=== PATIENT | female | born 1930 | race Caucasian/White ===

== ENCOUNTER 2018-03-15 13:45 | Observation (INO) | payer OTHER, BC ==
[~2018-03-15] VITALS: Ht 162.6 cm; Wt 72.1 kg
[~2018-03-15 13:45] MED LIST: AMLODIPINE BES2.5 MG PO; APRESOLINE25 MG PO; ASPIRIN81 M2 PO; Aspirin E.C. PO; BENADRYL25 MG PO; BISAC-EVAC10 MG PR; CARBIDOPA-LEVO1 EAC7 PO; CARBIDOPA/LEVO1 EACH PO; CHILDREN'S ASPI81 M1 PO; CLONIDINE HCL0.1 MG PO; COLACE100 MG PO; COMPAZINE25 M1 PR; CORTIZONE-1028 GM TP; DAILY VALUE1 EACH PO; DIAZEPAM5 MG PO; DRISDOL50000 UNIT PO; ERGOCALCIF50000 UNIT PO; EXELON PATCH4.6 MG TD; INDERIDE 40/1 TABLET PO; LEVODOPA PO; LIDOCAINE700 MG TD; LOPRESSOR100 M1 PO; LORAZEPAM0.5 MG PO; LOVENOX40 MG/0.4 SC; METOPROLOL SUCC25 MG PO; METOPROLOL TAR100 MG PO; MICROZIDE12.5 M1 NG; MILK OF MAGN PO; MILK OF MAGNESI10 ML PO; NORVASC2.5 MG PO; ONDANSETRON ODT4 MG PO; ONE DAILY ESS400 MCG PO; QUETIAPINE FUMA25 MG PO; RIVASTIGMINE1.5 MG PO; SENNA-TIME S T1 EACH PO; SEROQUEL12.5 MG PO; SINEMET 25-1001 EACH PO; TOPROL XL25 MG PO; TOPROL XL6.25 MG PO; TYLENOL EXTRA500 MG PO; TYLENOL REGULA325 MG PO; Toprol XL PO; Tums,OsCal PO; Tylenol PR; VALIUM5 MG PO; Valium PO
[2018-03-15 14:09] LABS: CHLORIDE 104 mEq/L (99-109); POTASSIUM 3.6 mEq/L (3.7-5.4); SODIUM 142 mEq/L (136-147)
[2018-03-15 14:10] LABS: GLUCOSE 75 mg/dL (70-99)
[2018-03-15 14:14] LABS: CREATININE 0.8 mg/dL (0.6-1.3); GFR ESTIMATE (CALCULATED) > 59 mL/min/
[2018-03-15 14:15] LABS: UREA NITROGEN (BUN) 29 mg/dL (9-23)
[2018-03-15 14:21] LABS: TROP-I INTERPRETATION NEGATIVE; TROPONIN-I 0.04 ng/mL (0.0-0.30)
[2018-03-15] MEDS ORDERED: K-DUR10 MEQ PO (16:30)
[2018-03-15] MEDS ORDERED: HYDROCHLOROTHIA25 MG PO (16:31)
[2018-03-15] MEDS ORDERED: MEMANTINE HCL5 MG PO (16:32)
[2018-03-15] MEDS ORDERED: SINEMET 25-1001 EACH PO (16:33)
[2018-03-15] MEDS ORDERED: APRESOLINE50 MG PO (16:35)
[2018-03-15] MEDS ORDERED: FLEET ENEMA-AD118 ML PR (16:46)
[2018-03-15] MEDS ORDERED: ARTIFICIAL TEAR1510 BOTH EYES (16:49)
[2018-03-15] MEDS ORDERED: ALUMINUM PO (16:51)
[2018-03-15] MEDS ORDERED: MAGNESIUM H PO (16:51)
[2018-03-15 17:34] LABS: THYROTROPIN (TSH) 2.4 MIU/L (0.4-5.5)
[2018-03-15 18:19] LABS: HEMATOCRIT 36.7 % (36.0-46.0); HEMOGLOBIN 11.9 G/DL (11.9-15.5); MCHC 32.4 G/DL (30.0-36.0); MCV 95.6 FL (83-99); RBC DIS.WIDTH-CV 13.2 % (11.8-14.6); RBC DIS.WIDTH-SD 46.4 % (39-53); RED BLOOD COUNT 3.84 M/uL (3.80-5.20); WHITE BLOOD COUNT 8.3 K/uL (4.1-10.2)
[2018-03-15 18:42] LABS: TROP-I INTERPRETATION NEGATIVE; TROPONIN-I 0.04 ng/mL (0.0-0.30)
[2018-03-15 19:29] VITALS: BP 194/81
[2018-03-15 19:30] LABS: PLAT.SUFFICIENCY ADEQUATE; PLATELET COUNT 184 K/uL (156-360)
[2018-03-16 05:19] VITALS: BP 188/80
[2018-03-16 11:13] VITALS: BP 154/101
== END 2018-03-16 14:41 ==
LOC: EME 13:45 → EDOF 16:57 → ENRESERV 16:58 → 4SOUTH 19:12
PROVIDERS: Emergency Medicine; Internal Medicine
DX: R07.9 Chest pain, unspecified (principal); G20 Parkinson's disease; I10 Essential (primary) hypertension; F02.80 Dementia in other diseases classified elsewhere, unspecified severity, without behavioral disturbance, psychotic disturbance, mood disturbance, and anxiety; Z86.73 Personal history of transient ischemic attack (TIA), and cerebral infarction without residual deficits; K58.9 Irritable bowel syndrome, unspecified; M19.90 Unspecified osteoarthritis, unspecified site; M81.0 Age-related osteoporosis without current pathological fracture; G47.33 Obstructive sleep apnea (adult) (pediatric); Z87.442 Personal history of urinary calculi; Z86.010 Personal history of colon polyps; Z91.81 History of falling; J44.9 Chronic obstructive pulmonary disease, unspecified; F41.9 Anxiety disorder, unspecified; F32.9 Major depressive disorder, single episode, unspecified; I35.0 Nonrheumatic aortic (valve) stenosis; R94.31 Abnormal electrocardiogram [ECG] [EKG]; I51.7 Cardiomegaly; I48.92 Unspecified atrial flutter; Z90.49 Acquired absence of other specified parts of digestive tract; Z79.82 Long term (current) use of aspirin; Z66 Do not resuscitate; Z88.0 Allergy status to penicillin; Z88.1 Allergy status to other antibiotic agents; Z91.013 Allergy to seafood; Z91.041 Radiographic dye allergy status; Z88.8 Allergy status to other drugs, medicaments and biological substances
CPT/HCPCS: 71046; 80048; 81003; 84439; 84443; 84484; 85027; 93005; 99281; 99285; G0378; G8978 GP CM; G8979 GP CK; J1644